=== PATIENT | male | born 1955 | race Caucasian/White ===

== ENCOUNTER 2017-07-21 09:00 | Inpatient (IN) | payer BC ==
[2017-07-18 16:43] LABS: ASCORBIC ACID (UR NOT ORDER) NEG (NEG); BILIRUBIN, URINE NEGATIVE (NEG); KETONE, URINE NEGATIVE (NEG); LEUKOCYTE ESTERASE(NOT OR NEG (NEG); WBC (NOT ORDERED) (RFLEX) < 1 (0-5)
[2017-07-18 17:50] LABS: HEMATOCRIT 42.2 % (40.0-51.0); HEMOGLOBIN 14.3 g/dL (13.6-17.8)
[~2017-07-21] VITALS: Ht 170.2 cm; Wt 73.9 kg
--- NOTE | ~2017-07-21 | OP ---
Record Of Operation [facility] [address] [place]. [address] NAME: DRE KAUFFMAN : 53 STATUS : DIS IN PAT#: [id number] AGE: 61 ADM/REG DATE : 07/21/17 MR#: [id number] REPORT SERV DATE: 07/22/17 DICTATED BY: CHAMP JAIMES DATE: 07/22/17 REPORT STATUS : Draft TRANSCRIBED BY: MODL DATE: 07/22/17 DATE OF PROCEDURE: 07/22/2017 TITLE OF OPERATION: 1. Robot-assisted laparoscopic radical prostatectomy. 2. Robot-assisted laparoscopic bilateral extended pelvic lymph node dissection. PREOPERATIVE DIAGNOSIS: High risk prostate cancer. POSTOP DIAGNOSIS: High risk prostate cancer. INDICATIONS: Mr. Kauffman is a 61-year-old male with a diagnosis of a very high risk prostate cancer, given his high Nette score and preoperative T3a disease. He has had a negative metastatic workup. He is here for radical prostatectomy with curative intent. ANESTHESIA: General. COMPLICATIONS: None. IMPLANTS: 1. An 18-Libyan Ruiz catheter. 2. #10 round JACKY drain. SPECIMEN: 1. Anterior fat pad. 2. Bilateral pelvic lymph nodes. 3. Prostate and seminal vesicles. 4. Left apical margin. NARRATIVE: The patient was brought to the operating room, identified by his wristband. General anesthesia was induced and Ancef was given for preoperative antibiotics. He was placed in dorsal lithotomy position, prepped and draped in sterile fashion. A 16-Libyan Ruiz catheter was placed into the bladder. The balloon was inflated with 10 mL of sterile water. His abdomen was insufflated to a pressure of 15 mmHg. An 8 mm port was placed in a supraumbilical position. The abdomen was inspected. There were some minor adhesions on the right side of the body associated with a prior appendectomy and were taken down with Endo Bubba. A standard except port placement was performed with two 8 mm ports placed on the left side of the body and one on the right side of the body. A 12 mm port was placed in the right lower quadrant for emergency room physician assistant port and a 5 mm air seal port was placed in the right upper quadrant for a second emergency room physician assistant port. The patient was placed in Trendelenburg and the robot was docked. We began the operation by incising the peritoneum over the seminal vesicles and vas deferens. These structures were dissected out bilaterally. The vas deferens were clipped and divided bilaterally. The pedicle to the seminal vesicles was clipped and divided bilaterally. The obvious fascia was reflected onto the rectum. There was no adherence at all between this plane consistent with concerning for extra prostatic disease. Next, the bladder was dropped off the anterior abdominal wall. The pubic bone and Record Of Operation [facility] [id number] [place]. [address] NAME: DRE KAUFFMAN : 53 STATUS : DIS IN PAT#: [id number] AGE: 61 ADM/REG DATE : 07/21/17 MR#: [id number] REPORT SERV DATE: 07/22/17 DICTATED BY: CHAMP JAIMES DATE: 07/22/17 REPORT STATUS : Draft TRANSCRIBED BY: BRO DATE: 07/22/17 prostate were exposed. Fibrofatty tissue overlying the prostate was removed with bipolar cautery and scissors, this tissue was sent as anterior fat pad for pathologic analysis. The endopelvic fascia and puboprostatic ligaments were divided bilaterally. The levator fibers were swept off the prostate bluntly bilaterally. The dorsal vein was stapled with a 45 mm endovascular stapler. A 3-0 V-Loc suture was then used to over sew residual dorsal venous penetrators and also used to suspend the urethra to the pubic bone. Next, a bladder preserving operation was performed. The fibrofatty tissue overlying the bladder neck was divided with bipolar cautery and scissors. The bladder neck was precisely identified and transected anteriorly. The bladder neck was then divided posteriorly and the bladder was divided off the prostate to expose the previously dissected out seminal vesicles and vas deferens. The pedicles to the prostate were clipped and divided bilaterally. A non-nerve sparing operation was performed to ensure negative margins with this high risk patient. There was some adherence of the left apex, a margin was taken to pathology which was negative for tumor. This density was likely due to biopsy changes. The urethra was divided preserving maximal urethral length. The posterior striated sphincter was divided. The prostate seminal vesicles were then clear and placed into an EndoCatch bag. Small bleeders were controlled with metal clips. Next, attention was turned to the pelvic lymph node dissection. All fibrofatty tissue overlying the external iliac vein, within the obturator fossa and overlying the internal iliac vessels from the level of the pubic symphysis to the bifurcation of the iliacs was taken. Care was taken to clip lymphatics proximally and distally. There was no bleeding. The train brake operator nerve was spared. This was performed on the left and right side of the body. All of the tissue was removed and was placed into a 2nd EndoCatch bag and sent to pathology as bilateral pelvic lymph nodes. Next, the posterior striated sphincter was reconstructed with a 3-0 V-Loc suture in the manner described by Jason. Finally, a running vesicourethral anastomosis was performed with two interlocked 3 0 V lock sutures. An 18-Libyan catheter was placed. The balloon was inflated with 15 mL of sterile water. The bladder was irrigated and the connection was water tight. The robot was then undocked. A #10 round JACKY drain was placed through the left lateral robotic port. It was sutured in place with a 2-0 nylon suture. The emergency room physician assistant port was closed with a 0 Vicryl suture using Hector-Daniel device. All other ports were removed. The skin and fascia were enlarged at the supraumbilical site. The prostate and lymph nodes were removed and sent to pathology for analysis. The fascia was closed with 0 Monocryl sutures in a figure- of-eight fashion. Skin was closed with 4-0 Monocryl suture in subcuticular fashion. Dermabond dressing was placed. The patient was awoken from anesthesia and transferred to the recovery room in stable condition. There were no complications. KISHORE/BRO Champ Jaimes MD / [id number] CC: Champ Jaimes MD Record Of Operation [address] [address] NAME: DRE KAUFFMAN : 53 STATUS : DIS IN PAT#: [id number] AGE: 61 ADM/REG DATE : 07/21/17 MR#: [id number] REPORT SERV DATE: 07/22/17 DICTATED BY: CHAMP JAIMES DATE: 07/22/17 REPORT STATUS : Draft TRANSCRIBED BY: BRO DATE: 07/22/17 Tato Lemos MD
[~2017-07-21 09:00] MED LIST: MULTIVITAMI1 PO
[2017-07-21 16:29] LABS: BASOPHILS 0.1 %; BASOPHILS ABSOLUTE 0.01 10/3/uL (0.0-0.16); EOSINOPHILS 0.1 %; EOSINOPHILS ABSOLUTE 0.01 10/3/uL (0.0-0.53); HEMATOCRIT 39.4 % (40.0-51.0); HEMOGLOBIN 13.5 g/dL (13.6-17.8); IMMATURE GRANULOCYTES 0.2 %; IMMATURE GRANULOCYTES ABSOLUTE 0.02 10/3/uL (0.0-0.11); LYMPHOCYTES 8.9 %; LYMPHOCYTES ABSOLUTE 0.73 10/3/uL (0.67-4.30); MEAN CORPUS HGB CONC 34.3 g/dL (32.0-36.0); MEAN CORPUSCULAR HEMOGLOB 31.3 pg (26.0-34.0); MEAN CORPUSCULAR VOLUME 91.2 fL (80-100); MEAN PLATELET VOLUME 8.7 fL (9.2-13.0); MONOCYTES 1.5 %; MONOCYTES ABSOLUTE 0.12 10/3/uL (0.21-1.20); NEUTROPHILS 89.2 %; NEUTROPHILS ABSOLUTE 7.33 10/3/uL (2.02-8.40); PLATELET COUNT 231 10/3/uL (150-400); RED CELL COUNT 4.32 10/6/uL (4.7-6.1); WHITE BLOOD CELLS 8.2 10/3/uL (4.5-10.5)
[2017-07-21 16:30] LABS: MANUAL DIFF NO %
[2017-07-21 16:43] LABS: BUN (BLOOD UREA NITROGEN) 11 MG/DL (6-23); CALCIUM, SERUM 8.7 MG/DL (8.5-10.4); CHLORIDE, SERUM 102 MMOL/L (96-112); CO2 (CARBON DIOXIDE) 30 MMOL/L (24-34); CREATININE 0.82 MG/DL (0.70-1.30); GFR AFRICAN AMERICAN 110 ML/MIN (>=60); GFR NON AFRICAN AMERICAN 95 ML/MIN (>=60); POTASSIUM, SERUM 3.4 MMOL/L (3.5-5.3); SODIUM, SERUM 139 MMOL/L (135-148)
[2017-07-21 16:45] LABS: GLUCOSE, SERUM 142 MG/DL (60-99)
[2017-07-22 12:16] LABS: CREATININE 0.85 MG/DL (0.70-1.30)
[2017-07-22] MEDS ORDERED: DSS PO (13:09)
[2017-07-22] MEDS ORDERED: CIP5 PO (13:10)
[2017-07-22] MEDS ORDERED: PCET PO (13:11)
== END 2017-07-22 17:07 | disposition home or self-care (01) | DRG 708 ==
LOC: ENRESERVTM → ENRESERVDT → ENRESERV → SDC/OF 10:56 → PACU 15:58 → 4SO 18:04
PROVIDERS: Urology
PROC: 07BC4ZX Excision of Pelvis Lymphatic, Percutaneous Endoscopic Approach, Diagnostic (ICD-10-PCS; 2017-07-21)
PROC: 8E0W4CZ Robotic Assisted Procedure of Trunk Region, Percutaneous Endoscopic Approach (ICD-10-PCS; 2017-07-21)
PROC: 0VT04ZZ Resection of Prostate, Percutaneous Endoscopic Approach (ICD-10-PCS; principal; 2017-07-21 12:00)
DX: C61 Malignant neoplasm of prostate (principal)
CPT/HCPCS: 36415; 80048; 81001; 82565; 82570; 85014; 85018; 85025; 86850; 86900; 86901; 88305; 88307; 88309; 88331; 93005; A9270-GY; J0690; J1885; J2250; J2370; J2405; J2710; J2795; J3010